=== PATIENT | male | born 1955 | race African-American/Black ===

== ENCOUNTER 2022-09-25 13:55 | Emergency (ER) | payer SELFPAY ==
[~2022-09-25] VITALS: Ht 182.9 cm; Wt 90.0 kg
[2022-09-25] MEDS ORDERED: ACETAMINOPHEN 325MG TABLET PO STA (14:35)
[2022-09-25] MEDS ORDERED: IBUPROFEN 600MG TABLET PO STA (14:35)
[2022-09-25 15:58] LABS: HEMATOCRIT. 43.1 % (42.0-52.0); HEMOGLOBIN. 14.2 g/dL (14.0-18.0); MEAN CORPUSCULAR HEMOGLOBIN 28.8 pg (28.0-32.0); MEAN CORPUSCULAR VOLUME 87.3 fL (80.0-94.0); MEAN PLATELET VOLUME 8.7 fl (7.4-10.4); PLATELET 135 x1000/uL (130-400); RED BLOOD CELL COUNT 4.93 mill/uL (4.7-6.1); RED CELL DISTRIBUTION WIDTH 17.5 % (11.6-14.6)
[2022-09-25 16:03] LABS: CHLORIDE 107 mEq/L (98-107)
[2022-09-25 16:15] LABS: ETHANOL BLOOD < 10 mg/dL
[2022-09-25] MEDS ORDERED: IBUP-2028 MT (16:35)
[2022-09-25] MEDS ORDERED: ACETAMINOPHEN 325MG TABLET PO NR (17:30)
[2022-09-25] MEDS ORDERED: IBUPROFEN 600MG TABLET PO NR (17:30)
[2022-09-25 18:24] LABS: PLATELET ESTIMATE NORMAL
[2022-09-25 20:19] VITALS: BP 111/55
== END 2022-09-25 20:23 | disposition home or self-care (01) ==
LOC: ER 13:55
DX: M79.10 Myalgia, unspecified site (principal)
CPT/HCPCS: 36415; 80053; 80320; 83880; 85025; 99283; G0480